=== PATIENT | male | born 1945 | race Caucasian/White ===

== ENCOUNTER 2017-09-06 11:33 | Outpatient (CLI) | payer MEDICARE, OTHER | END 2017-09-06 11:34 | disposition home or self-care (01) | LOC: CTENTCT 11:33 | PROVIDERS: ATTEND Otolaryngology Plastic Surgery within the Head & Neck | DX: J32.8 Other chronic sinusitis (principal) | CPT/HCPCS: 70486 ==

== ENCOUNTER 2019-06-12 14:05 | Outpatient (CLI) | payer MEDICARE, OTHER ==
[2019-06-12 14:38] LABS: #Eosinphils 0.1 thou/uL (0.0-0.7); #Lymphocytes 2.3 thou/uL (1.20-3.40); #Monocytes 0.7 thou/uL (0.11-0.59); #Neutrophils 5.4 thou/uL (1.40-6.50); %Basophils 0.3 % (0.0-1.0); %Eosinophils 1.6 % (0.0-10.0); %Lymphocytes 26.6 % (21.0-51.0); %Monocytes 8.2 % (0.0-10.0); %Neutrophils 63.3 % (42.0-75.0); Hemoglobin 14.7 g/dL (14.0-18.0); Mean Corpuscular HGB CONC 34.4 g/dL (32.0-36.0); Mean Corpuscular Hemoglobin 33.9 pg (27.0-31.0); Mean Corpuscular Volume 98.4 fL (78.0-98.0); Mean Platelet Volume 7.1 fL (7.4-10.4); Platelet Count 222 thou/uL (130-400); RBC Distribution Width 11.8 % (11.5-14.5); Red Blood Cell (RBC) Count 4.35 mill/uL (4.70-6.10); White Blood Cell (WBC) Count 8.5 thou/uL (4.8-10.8)
[2019-06-12 14:59] LABS: Anion Gap 10 mmol/L (10-20); BUN (Urea Nitrogen) 17 mg/dL (8.4-25.7); Calc. Creatinine Clearance 0 mL/min (70-130); Calcium 8.8 mg/dL (7.8-10.44); Carbon Dioxide 25 mmol/L (23-31); Chloride 109 mmol/L (98-107); Estimated GFR-MDRD 85; Glucose 97 mg/dL (83-110); Potassium 4.3 mmol/L (3.5-5.1); Sodium 140 mmol/L (136-145)
== END 2019-06-12 14:06 | disposition home or self-care (01) ==
LOC: LABBT 14:05
PROVIDERS: ATTEND Orthopaedic Surgery
DX: Z01.818 Encounter for other preprocedural examination (principal); R22.32 Localized swelling, mass and lump, left upper limb
CPT/HCPCS: 80048; 85025; 93005; 93010

== ENCOUNTER 2019-06-14 05:46 | Day surgery (SDC) | payer MEDICARE, OTHER ==
[2019-06-12 14:03] VITALS: BMI 28.5
--- NOTE | 2019-06-13 08:43 | HP ---
HISTORY OF PRESENT ILLNESS: The patient is a 73-year-old male who cut his thumb in July of 2015. The incision was sutured at Urgent Care. He subsequenlty has developed a mass over his thumb, which has gradually increased in size and is painful. He has had no signs of infection, but the mass gets in his way and is bothersome. He also has a long history of degenerative arthritis of the left knee without injury. He has elected at this time to pursue conservative treatment with anti-inflammatory medications and occasional steroid injections. He is admitted this time for excision of mass of his left thumb, but during the same anesthetic, he will have his left knee injected. PAST MEDICAL HISTORY: The patient is otherwise in good health. He has had enlarged prostate and had cataract surgery, foot surgery, and tonsillectomy and appendectomy. CURRENT MEDICATIONS: Include, 1. Flomax. 2. Ibuprofen. 3. Flonase. ALLERGIES: HE HAS NO KNOWN ALLERGIES. FAMILY HISTORY: Otherwise unremarkable. SOCIAL HISTORY: Otherwise unremarkable. REVIEW OF SYSTEMS: Otherwise unremarkable. PHYSICAL EXAMINATION: GENERAL: This is a healthy male. HEENT: Unremarkable. NECK: Supple. CHEST: Clear. HEART: Regular rate and rhythm. ABDOMEN: Soft, nontender. RECTAL: Deferred. GENITAL: Deferred. EXTREMITIES: Pertinent findings related to the left thumb, there is a 5 x 5 mm yellow cystic mass over the radial aspect of the IP joint of the left thumb. There is mild tenderness. There is no instability. There is full range of motion. Neurovascular exam is intact. Examination of the left knee reveals mild varus. There is tenderness over the medial joint line. Range of motion is about 125 degrees. There is no instability. Neurovascular exam is intact. IMAGING: X-rays of the left thumb reveal slight arthritic changes. No foreign bodies. Previous x-rays of the left knee reveal [id number] collapse medially. IMPRESSION: 1. Soft tissue mass, left thumb, possible epidermal inclusion cyst. 2. Degenerative arthritis, left knee. PLAN: 1. Surgical excision of soft tissue mass, left thumb. 2. Cortisone injection, left knee. The nature of the surgery, length of recovery, and potential complications such as infection, loss of motion, incomplete relief, nerve injury, recurrence, and need for additional treatment, and repeat surgery had been discussed in detail. He may ultimately require total knee replacement, but he is not interested in surgery on his knee at this point in time. Job ID: [id number]
[2019-06-14] MEDS ORDERED: ceFAZolin Sodium (SDC) 2 GM/100 ML BAG ONE (06:16)
[2019-06-14] MEDS ORDERED: Bupivacaine PF 0.5% 30 ML VIAL ONE (06:30)
[2019-06-14] MEDS ORDERED: Lidocaine 1% (PF) 30 ML VIAL ONE (06:30)
[2019-06-14] MEDS ORDERED: methylPREDNISolone Acetate 40 mg/ml Vial ONE (06:30)
[2019-06-14] MEDS ORDERED: Fentanyl 100 MCG/2 ML VIAL ONE (06:50)
--- NOTE | 2019-06-14 10:25 | OP ---
DATE OF PROCEDURE: 06/14/2019 PREOPERATIVE DIAGNOSES: 1. Soft tissue mass, left thumb/epidermal inclusion cyst. 2. Degenerative arthritis, left knee. POSTOPERATIVE DIAGNOSES: 1. Soft tissue mass, left thumb/epidermal inclusion cyst. 2. Degenerative arthritis, left knee. PROCEDURES PERFORMED: 1. Excision of subcutaneous mass, left thumb (epidermal inclusion cyst). 2. Cortisone injection, left knee. ANESTHESIA: General. DESCRIPTION OF PROCEDURE: After satisfactory anesthesia was induced in the supine position, the patient's left knee was injected first under sterile technique. The left knee was injected with 80 mg of Depo-Medrol and approximately 8 mL of 1% plain lidocaine and a Band-Aid placed over the puncture site. The left hand was then prepped and draped in routine sterile fashion. The limb was elevated and exsanguinated with an Esmarch bandage and the tourniquet inflated to 250 mmHg. Metacarpal block was accomplished with 10 mL of 0.5% plain Marcaine. A longitudinal incision of approximately 1.5 cm was made over the mass. The skin was stretched over the mass and almost immediately upon making the incision over the mass. Part of the mass was entered and there was typical cheesy material of an epidermal inclusion cyst. Using sharp and blunt dissection and gently reflected the flaps and tried to avoid reentering the cyst and it was excised in its entirety and sent to Pathology. It appeared to be completely excised. The wound was thoroughly irrigated. Slight redundant skin that was stretched over the mass was excised and the skin was closed with interrupted 4-0 nylon. A sterile bulky compressive dressing was applied. The tourniquet was deflated after 16 minutes. The hand promptly pinked up. The patient was awakened, taken to the recovery room in stable condition. There were no apparent intraoperative complications. The estimated blood loss was negligible. The patient will be discharged home in satisfactory condition, instructed on ice and elevation, and given written wound care instructions. He was given a prescription for tramadol for pain 50 mg, 16 tablets. He will be rechecked in my office in 10 to 14 days or sooner if there are any problems prior to that time. Job ID: [id number]
== END 2019-06-14 09:42 | disposition home or self-care (01) ==
LOC: SDC 05:46
PROVIDERS: ATTEND Orthopaedic Surgery
PROC: 0JBK0ZZ Excision of Left Hand Subcutaneous Tissue and Fascia, Open Approach (ICD-10-PCS; principal; 2019-06-14)
PROC: 3E0U3GC Introduction of Other Therapeutic Substance into Joints, Percutaneous Approach (ICD-10-PCS; 2019-06-14)
DX: R22.32 Localized swelling, mass and lump, left upper limb (principal); M17.12 Unilateral primary osteoarthritis, left knee; Z79.899 Other long term (current) drug therapy
CPT/HCPCS: 88304; J0690; J1030; J2001; J3010; S0020

== ENCOUNTER 2022-05-20 08:40 | Outpatient (CLI) | payer MEDICARE | END 2022-05-20 08:41 | disposition home or self-care (01) | LOC: LABBT 08:40 | PROVIDERS: ATTEND Orthopaedic Surgery | DX: Z01.818 Encounter for other preprocedural examination (principal); M17.12 Unilateral primary osteoarthritis, left knee; Z20.822 Contact with and (suspected) exposure to COVID-19 | CPT/HCPCS: 71046; 80048; 81003; 85025; 85610; 86850; 86900; 86901; 87081; 87811; 93005; 93010 ==

== ENCOUNTER 2022-05-25 06:38 | Inpatient (IN) | payer OTHER, MEDICARE ==
[2022-05-20 09:59] LABS: Bilirubin Neg (Negative); Blood, Urine 10 (Negative); Clarity Slightly Cloudy (Clear); Glucose, Urine (Dipstick) Normal (Negative); Ketone, Urine Negative (Negative); Leukocyte Negative (Negative); Nitrite Negative (Negative); Protein, Urine (Dipstick) 15 mg/dl (Neg-Trace); Urobilinogen Normal mg/dL (Less than 2)
[2022-05-20 10:05] LABS: #Eosinphils 0.2 10x3/uL (0.0-0.5); #Monocytes 0.6 10x3/uL (0.0-1.1); #Neutrophils 4.5 10x3/uL (1.5-8.4); %Basophils 0.4 % (0.0-2.0); %Eosinophils 2.1 % (0.0-6.0); %Lymphocytes 26.7 % (18.0-47.0); %Monocytes 7.6 % (0.0-10.0); %Neutrophils 62.5 % (40.0-75.0); Hemoglobin 14.9 g/dL (13.5-17.5); Mean Corpuscular HGB CONC 33.2 g/dL (32.0-36.0); Mean Corpuscular Hemoglobin 31.8 pg (27.0-33.0); Mean Corpuscular Volume 95.7 fl (81.2-95.1); Mean Platelet Volume 9.9 fl (7.4-10.4); Platelet Count 242 10x3/uL (150-450); RBC Distribution Width 13.3 % (11.5-14.5); Red Blood Cell (RBC) Count 4.69 10x6/uL (4.32-5.72); White Blood Cell (WBC) Count 7.3 10x3/uL (3.5-10.5)
[2022-05-20 10:23] LABS: INR-International Normal Ratio 0.9; Prothrombin Time 10.3 sec (9.5-12.1)
[2022-05-20 10:28] LABS: Anion Gap 14 mmol/L (10-20); BUN (Urea Nitrogen) 16 mg/dL (8.4-25.7); Calc. Creatinine Clearance 0 mL/min (70-130); Calcium 9.1 mg/dL (7.8-10.44); Carbon Dioxide 24 mmol/L (23-31); Chloride 107 mmol/L (98-107); Estimated GFR 84; Glucose 99 mg/dL (83-110); Potassium 4.4 mmol/L (3.5-5.1); Sodium 141 mmol/L (136-145)
[2022-05-22 09:56] VITALS: BMI 27.1
[2022-05-25] MEDS ORDERED: Sodium Chloride 0.9% 100 ML ONE ×3 (07:32→12:49)
[2022-05-25] MEDS ORDERED: Tranexamic Acid 1,000 MG/10 ML VIAL ONE ×2 (07:32→12:47)
[2022-05-25] MEDS ORDERED: Vancomycin (BATCH) 1.5 GRAM/300 ML BAG ONE (07:32)
[2022-05-25] MEDS ORDERED: Fentanyl 100 MCG/2 ML VIAL ONE ×2 (08:42→11:45)
[2022-05-25] MEDS ORDERED: Midazolam HCl 2 mg/2 ml Vial ONE (08:42)
[2022-05-25] MEDS ORDERED: Bupivacaine HCl 0.5%/Epinephrine 1:200,000/PF 30 ml Vial ONE (09:00)
[2022-05-25] MEDS ORDERED: fentaNYL Citrate/PF 100 MCG/2 ML SYRINGE ONE (09:11)
[2022-05-25] MEDS ORDERED: Bupivacaine PF 0.5% 30 ML VIAL ONE (09:25)
[2022-05-25] MEDS ORDERED: CEFAZOLIN 2 GM VIAL ONE (09:25)
[2022-05-25] MEDS ORDERED: ePHEDrine 50 MG/ML VIAL ONE (09:35)
[2022-05-25] MEDS ORDERED: Lidocaine 1% PF 5 ML VIAL ONE (09:35)
[2022-05-25] MEDS ORDERED: Dexamethasone 20 MG/5 ML VIAL ONE (09:35)
[2022-05-25] MEDS ORDERED: PROPOFOL 200 MG/20 ML VIAL ONE (09:35)
[2022-05-25] MEDS ORDERED: Ondansetron PF 4 MG/2 ML Vial ONE (09:35)
[2022-05-25] MEDS ORDERED: diphenhydrAMINE 25 MG CAP PO PRN (09:38)
[2022-05-25] MEDS ORDERED: Ondansetron PF 4 MG/2 ML Vial IVP PRN ×2 (09:38→09:45)
[2022-05-25] MEDS ORDERED: traMADol HCl 50 MG TAB PO PRN ×3 (09:38→09:45)
[2022-05-25] MEDS ORDERED: Acetaminophen 325 MG TAB PO PRN (09:38)
[2022-05-25] MEDS ORDERED: HYDROcodone/Acetaminophen 10/325 mg Tablet PO PRN ×4 (09:38→09:45)
[2022-05-25] MEDS ORDERED: Zolpidem Tartrate 5 MG TAB PO PRN ×2 (09:38→09:45)
[2022-05-25] MEDS ORDERED: Fentanyl 100 MCG/2 ML VIAL SLOW IVP PRN (09:38)
[2022-05-25] MEDS ORDERED: Promethazine HCl 25 MG/ML VIAL IM PRN ×3 (09:38→11:56)
[2022-05-25] MEDS ORDERED: Fentanyl 100 MCG/2 ML VIAL IV PRN (09:42)
[2022-05-25] MEDS ORDERED: Ropivacaine 0.2% 550 ML 550 ML NERVE BLCK SCH (09:45)
[2022-05-25] MEDS ORDERED: Tranexamic Acid 1,000 MG in Sodium Chloride 0.9% 100 ML IVPB SCH (09:45)
[2022-05-25] MEDS ORDERED: Ondansetron HCl/PF 4 MG/2 ML Vial IVP PRN (11:56)
[2022-05-25] MEDS ORDERED: Promethazine HCl 25 MG/ML VIAL IVPB PRN (11:56)
[2022-05-25] MEDS ORDERED: HYDROmorphone 2 MG/ML VIAL SLOW IVP PRN (11:56)
[2022-05-25] MEDS ORDERED: PACU-Morphine 4MG/ML VIAL SLOW IVP PRN (11:56)
[2022-05-25] MEDS ORDERED: Ketorolac Tromethamine 30 MG/ML VIAL ONE (12:47)
[2022-05-25] MEDS: Sodium Chloride 0.9% 1,000 ML IV SCH ×2 (13:42→20:07)
[2022-05-25] MEDS: Ketorolac Tromethamine 30 MG/ML VIAL IVP SCH ×3 (13:43→23:01)
[2022-05-25] MEDS ORDERED: Ketorolac Tromethamine 30 MG/ML VIAL IVP SCH (14:00)
[2022-05-25] MEDS: CEFAZOLIN 2 GM in Sodium Chloride 0.9% 100 ML IVPB SCH (17:19)
[2022-05-25] MEDS ORDERED: Vancomycin 1.5 GRAM/300 ML BAG 1.5 GM in Premix Bag 1 BAG IVPB SCH (20:00)
[2022-05-25] MEDS: Aspirin 81 mg Enteric Coated Tablet PO SCH (20:21)
[2022-05-26] MEDS: CEFAZOLIN 2 GM in Sodium Chloride 0.9% 100 ML IVPB SCH (03:00)
[2022-05-26] MEDS: Ketorolac Tromethamine 30 MG/ML VIAL IVP SCH ×4 (05:18→23:23)
[2022-05-26 05:50] LABS: Hemoglobin 11.7 g/dL (14.0-18.0); Mean Corpuscular HGB CONC 32.7 g/dL (32.0-36.0); Mean Corpuscular Hemoglobin 32.7 pg (27.0-31.0); Mean Corpuscular Volume 99.9 fL (78.0-98.0); Mean Platelet Volume 7.3 fL (7.4-10.4); Platelet Count 184 thou/uL (130-400); RBC Distribution Width 12.3 % (11.5-14.5); Red Blood Cell (RBC) Count 3.57 mill/uL (4.70-6.10); White Blood Cell (WBC) Count 12.3 thou/uL (4.8-10.8)
[2022-05-26] MEDS: Sodium Chloride 0.9% 1,000 ML IV SCH ×2 (06:27→16:23)
[2022-05-26] MEDS: Ferrous Gluconate 324 MG TAB PO SCH ×2 (09:07→16:55)
[2022-05-26] MEDS: Multivitamin W/ Minerals 1 TAB PO SCH (09:07)
[2022-05-26] MEDS: Aspirin 81 mg Enteric Coated Tablet PO SCH ×2 (09:07→21:34)
[2022-05-26] MEDS: Senokot S 8.6-50 MG TAB PO SCH ×3 (09:08→21:39)
[2022-05-27] MEDS: Sodium Chloride 0.9% 1,000 ML IV SCH ×2 (03:04→12:20)
[2022-05-27] MEDS: Ketorolac Tromethamine 30 MG/ML VIAL IVP SCH (06:00)
[2022-05-27 07:00] LABS: Hemoglobin 11.1 g/dL (14.0-18.0); Mean Corpuscular HGB CONC 33.1 g/dL (32.0-36.0); Mean Corpuscular Hemoglobin 33.3 pg (27.0-31.0); Mean Platelet Volume 7.6 fL (7.4-10.4); Platelet Count 172 thou/uL (130-400); RBC Distribution Width 12.3 % (11.5-14.5); Red Blood Cell (RBC) Count 3.35 mill/uL (4.70-6.10); White Blood Cell (WBC) Count 10.4 thou/uL (4.8-10.8)
[2022-05-27] MEDS: Aspirin 81 mg Enteric Coated Tablet PO SCH (08:55)
[2022-05-27] MEDS: Multivitamin W/ Minerals 1 TAB PO SCH (08:55)
[2022-05-27] MEDS: Ferrous Gluconate 324 MG TAB PO SCH (08:55)
[2022-05-27] MEDS: Senokot S 8.6-50 MG TAB PO SCH (08:56)
[2022-05-27 11:29] VITALS: BP 110/63; TEMP 97.8
== END 2022-05-27 12:20 | disposition home health service (06) | DRG 470 ==
LOC: SDC 06:38 → EDSTATUS 09:00 → SURG B 09:38 → OBSVTOIN 09:38
PROVIDERS: ADMIT Orthopaedic Surgery; ATTEND Orthopaedic Surgery
PROC: 0SRD0J9 Replacement of Left Knee Joint with Synthetic Substitute, Cemented, Open Approach (ICD-10-PCS; principal; 2022-05-25)
PROC: 3E0T3BZ Introduction of Anesthetic Agent into Peripheral Nerves and Plexi, Percutaneous Approach (ICD-10-PCS; 2022-05-25)
DX: M17.12 Unilateral primary osteoarthritis, left knee (principal); Z20.822 Contact with and (suspected) exposure to COVID-19; F17.210 Nicotine dependence, cigarettes, uncomplicated; N40.0 Benign prostatic hyperplasia without lower urinary tract symptoms; Z96.1 Presence of intraocular lens; Z90.89 Acquired absence of other organs; Z90.49 Acquired absence of other specified parts of digestive tract; Z98.49 Cataract extraction status, unspecified eye; Z79.899 Other long term (current) drug therapy; Z82.49 Family history of ischemic heart disease and other diseases of the circulatory system
CPT/HCPCS: 36415; 80048; 81003; 85025; 85027; 85610; 86850; 86900; 86901; 87081; 87811; A4306; C1713; C1776; J0690; J1100; J1885; J2250; J2405; J2704; J2795; J3010; J3370; J3490; S0020